=== PATIENT | male | born 1960 | race Caucasian/White ===

== ENCOUNTER → 2020-06-29 14:07 | Outpatient (BNVA) | payer BC, SELFPAY | PROVIDERS: Visit Provider Internal Medicine | DX: L40.9 Psoriasis, unspecified (principal); Z79.899 Other long term (current) drug therapy; Z11.59 Encounter for screening for other viral diseases; Z11.1 Encounter for screening for respiratory tuberculosis; M32.9 Systemic lupus erythematosus, unspecified; D86.9 Sarcoidosis, unspecified; M10.9 Gout, unspecified | CPT/HCPCS: 80053; 84550; 85025; 85651; 86140; 86480; 86704; 86803; 87340; 99204 ==